=== PATIENT | female | born 2000 | race African-American/Black ===

== ENCOUNTER 2018-07-08 15:01 | Emergency (ER) | payer MEDICAID, SELFPAY ==
[2018-07-08] MEDS ORDERED: Azithromycin 250 MG TAB ONE (16:08)
[2018-07-08] MEDS ORDERED: cefTRIAXone\\ROCEPHIN 250 MG VIAL ONE (16:08)
[2018-07-08] MEDS ORDERED: Lidocaine 1% PF 5 ML VIAL ONE (16:10)
[2018-07-08] MEDS ORDERED: Proparacaine 0.5% Opth 15 ML BOT ONE (17:20)
== END 2018-07-08 16:35 | disposition home or self-care (01) ==
LOC: ERS 15:01
DX: A54.9 Gonococcal infection, unspecified (principal); A56.8 Sexually transmitted chlamydial infection of other sites; F32.9 Major depressive disorder, single episode, unspecified; F41.9 Anxiety disorder, unspecified
CPT/HCPCS: 96372; J0696; J2001

== ENCOUNTER 2019-01-31 21:07 | Day surgery (SDC) | payer OTHER ==
[2019-01-31 21:32] VITALS: BP 100/57; TEMP 98.6; BMI 23.3
[2019-01-31] MEDS: Lactated Ringer's 1,000 ML IV SCH ×2 (22:28→23:35)
[2019-01-31] MEDS ORDERED: Sodium Chloride 0.9% 2,000 ML IV SCH (23:45)
--- NOTE | 2019-01-31 23:48 | PDOC.FPROB ---
FMR OB H&P: HPI - History of Present Illness Chief Complaint: contractions Indentification: G1 History of Present Illness: 18yo G1 at 34w EGA by 23w US presents with complaint of increased pain with contractions, having them now every 20 min. Pt reports pain is high enough that they are difficult to walk through. Pt reports sexual activity 2 days ago and that the next day her contractions became more painful. Denies any other complaints or concerns. Denies Vaginal bleeding/discharg/LOF, reports good mvmt. Primary Care Physician: JEFERSON FMR OB H&P: Current - Care : 1 Gestational age: 32 - OB Labs Blood type: B RH: positive Antibody Screen: negative HIV: negative RPR: negative HepBsAg: negative Rubella: immune GBS: unknown FMR OB H&P: History - Past Medical History PMH: none - OB History OB History: none - Surgical History Sx History: none - Social History Social History: Denies T/A/D - Family History Family History: DM FMR OB H&P: Medications - Current Home Medications: Medication Instructions Recorded Confirmed Type Iron Fum,Ps/Folic Acid/Vitc/B3 1 cap PO DAILY 01/31/19 01/31/19 History [Folivane-F] 21/Iron Fu/Folic Acid 1 tablet PO DAILY 01/31/19 01/31/19 History [ Complete Caplet] Allergies/Adverse Reactions: Allergies Allergy/AdvReac Type Severity Reaction Status Date / Time No Known Allergies Allergy Unverified 01/31/19 21:22 FMR OB H&P: ROS - Review of Systems General: denies: fever/chills, fatigue Eyes: denies: eye pain, vision changes ENT: denies: nasal congestion, rhinorrhea Cardiovascular: denies: chest pain, palpitation Respiratory: denies: cough, congestion Gastrointestinal: denies: indigestion, diarrhea, constipation Genitourinary (Female): reports: contractions. denies: incontinence, dysuria, vaginal discharge, vaginal pain, vaginal bleeding, vaginal mass/sore Musculoskeletal: denies: pain, stiffness Neurologic: denies: numbness, syncope, seizures Integumentary: denies: rash, lesions Endocrine: denies: cold intolerance, heat intolerance Psychological: denies: depression, anxiety FMR OB H&P: Vital Signs - Maternal Vital signs: Vital Signs - First Documented Temp Pulse Resp BP Pulse Ox 98.6 F 94 18 100/57 L 100 01/31/19 21:21 01/31/19 21:21 01/31/19 21:21 01/31/19 21:21 01/31/19 21:21 - Heart Tones Baseline: 150 Variability: moderate Acceleration: absent Deceleration: absent Category: category 1 [place] contractions every: 3-6min --> <20min FMR OB H&P: Physical Exam - Physical Exam General: NAD, awake, alert and oriented HEENT: normocephalic and atraumatic, EOMI, grossly normal vision, grossly normal hearing Neck: supple, trachea midline Chest: non-tender to palpation Breast: symmetric Heart: RRR, normal S1/S2 General: CTAB, no respiratory distress Abdomen: soft, gravid Musculoskeletal: normal gait and station, pulses present Neurological: no tremor, no focal deficit Lymphatic: no purpura, no petechia Psychiatric: intact recent and remote memory, good judgement and insight - Pelvic Exam SVE: /50/-2 Presentation: vertex FMR OB H&P: A/P - Problem List (1) Status: Acute Discussion: Intrauterine A- Cramps/contractions initially q3-6min on presentation with SVE at /50/-2, with NS contractions spread to every > 20min and pt reported pain had resolved. Considering recent sexual activity and showing no change with cervical exam several hours later this is unlikely labor. P- Will DC with explicit labor precautions and instructions to f/u this week with PCP, Dr. Dumas. Addendum - Attending - Attending Attestation Date/Time: 02/02/19 3476 I personally evaluated the patient and discussed the management with Dr. Mena I agree with the History, Examination, Assessment and Plan documented above with any addition or exceptions noted below.
== END 2019-02-01 02:15 | disposition home or self-care (01) ==
LOC: L&D/OP 21:07
PROVIDERS: ATTEND Obstetrics & Gynecology
DX: O47.03 False labor before 37 completed weeks of gestation, third trimester (principal); Z3A.34 34 weeks gestation of pregnancy; Z79.899 Other long term (current) drug therapy
CPT/HCPCS: 96360; 96361; 99283

== ENCOUNTER 2019-03-04 09:18 | Day surgery (SDC) | payer OTHER ==
[2019-03-04 10:06] VITALS: BMI 24.7
[2019-03-04] MEDS ORDERED: Iron Sucrose Complex 500 MG in Sodium Chloride 0.9% 250 ML 250 ML IVPB SCH (11:00)
[2019-03-04] MEDS ORDERED: Sodium Chloride 0.9% 1,000 ML IV SCH (11:00)
[2019-03-04] MEDS ORDERED: Acetaminophen 500 MG TAB PO SCH (11:00)
--- NOTE | 2019-03-04 11:04 | PDOC.LDHP ---
Labor and Delivery H&P Chief complaint: other (scheduled iron infusion) Current gestational age (weeks): 38 (38.4) Due date: 03/14/19 Dating criteria: second trimester ultrasound Grav: 1 Para: 0 OB History Details: 1st Current complications: none Current medications: pre-joel vitamins Allergies/Adverse Reactions: Allergies Allergy/AdvReac Type Severity Reaction Status Date / Time No Known Allergies Allergy Verified 03/04/19 09:52 Social history: none - Physical Exam Vital signs reviewed and normal: yes General: other Heart: RRR Lungs: CTAB Abdomen: gravid [place] contractions every: uterine irritability - OB Labs Blood type: B RH: positive Antibody Screen: negative HIV: negative RPR: negative HEPSAg: negative GBS: negative Rubella: immune Additional Labs: gono negative chlamydia positive with NEHA on 02/14 negative Hb 9.2 (02/21/19) - Plan -: 18 yo G1 at 38.4 by 23.4wk sono here for scheduled iron transfusion 1. Anemia of -No improvement with oral iron therapy -Hb 9.2 (02/21/19) -First time transfusion -Will tranfuse and recheck labs, monitor for 30 minutes, d/c if stable 2. sIUP, term -continue routine care with Dr. Dumas, has appt next Thursday Addendum - Attending - Attending Attestation Date/Time: 03/04/19 [id number] I personally evaluated the patient and discussed the management with Dr. Marsh. I agree with the History, Examination, Assessment and Plan documented above with any addition or exceptions noted below.
--- NOTE | 2019-03-04 15:33 | PDOC.EVN ---
Event Note - Event Note Event Note: Residents paged to evaluate patient who is complaining of hands feeling puffy and heavy. She states it started in her legs and now hands. She denies any shortness of breath, itching, abdominal pain. Denies headache, vision changes. VS reviewed and WNL FHT reassuring Gen: awake, flat affect HEENT: NCAT CV: RRR RESP: CTAB ABD: gravid, NT EXT: no pitting edema NEURO: no focal deficits A/P: 18 yo G1 here for iron infusion - Will d/c 2/2 possible intolerance - Do not suspect allergic rxn at this time - Continue to observe for additional hour - Will d/c if vitals remain stable and no new sx occur MD Roxanne, PGY-3
[2019-03-04] MEDS ORDERED: Lactated Ringer's 1,000 ML IV SCH (16:00)
== END 2019-03-04 18:01 | disposition home health service (06) ==
LOC: L&D/OP 09:18
PROVIDERS: ATTEND Emergency Medicine
DX: O99.013 Anemia complicating pregnancy, third trimester (principal); D64.9 Anemia, unspecified; Z3A.38 38 weeks gestation of pregnancy
CPT/HCPCS: 96361; 96365; 96366; 99282; J1756; J7050

== ENCOUNTER 2019-03-09 22:26 | Day surgery (SDC) | payer OTHER ==
[2019-03-09 23:06] VITALS: BMI 24.7
--- NOTE | 2019-03-10 00:16 | PDOC.LDHP ---
Labor and Delivery H&P Chief complaint: other (vaginal spotting) HPI: 18YO @ 39.2 weeks presented to L&D reporting vaginal spotting that began around 20:00 today. The patient reports that she was seen in [facility] and had her cervix checked which was reportedly /-1. She reports that it was light pink spotting only on the toilet paper when she wiped. She therefore took a shower and checked again when she used the bathroom after showering and noticed a little more blood in the tissue that was a little darker so she proceeded to L& D for further evaluation. She endorses occasional lower abdominal pressure and back pain but denies any painful, regular contractions, abnormal vaginal discharge or LOF. She endorses regular movement and denies any dysuria, N/ V or fever/chills. Current gestational age (weeks): 39 (39.2) Due date: 03/14/19 Dating criteria: last menstrual period Grav: 1 Para: 0 OB History Details: h/o chlamydia & gonorrhea earlier in w/ negative OTC on 02/14/19 h/o BV s/p treatment Current complications: other (anemia s/p iron infusion x1) Past Medical History: none Current medications: pre- vitamins Previous surgical history: none Allergies/Adverse Reactions: Allergies Allergy/AdvReac Type Severity Reaction Status Date / Time No Known Allergies Allergy Verified 03/09/19 23:05 Social history: drug use (MJ last used a few weeks ago) - Physical Exam Vital signs reviewed and normal: yes General: NAD, resting Heart: RRR Lungs: nonlabored breathing Abdomen: NTTP Extremeties: no edema FHT: category 1, variability present - Vaginal Exam cm dilated: 1 (/-1 in clinic & here) Effacement: 90% Station: -1 - OB Labs Blood type: B RH: positive Antibody Screen: negative HIV: negative RPR: negative HEPSAg: negative Rubella: immune - Assessment term sIUP w/ vaginal spotting 2/2 cervical stretching from cervical check - Plan -: 18YO @ 39.2 weeks who presented to L&D with a CC of vaginal spotting. Vaginal spotting: - Patient irregularly hitesh and not in any distress even with contractions. FHTs reassuring with baseline in the 150s and accels and variability present. - Cervical check unchanged from clinic today and patient denies any unprotected intercourse since negative NEHA for GC/Chlamydia. No further testing therefore indicated at this time since patient is term. - Patient reassured that spotting was from cervical check earlier today and cleared for discharge home with labor precautions. Patient agreed with plan and endorsed understanding. Instructed to keep scheduled appt with [facility] for next . sIUP @ 39.2 weeks: - Patient instructed to keep f/u appt with [facility] for routine monitoring. Anemia in : - Patient instructed to continue PNVs and f/u with [facility]. Dispo: Discharged home with labor precautions. Addendum - Attending - Attending Attestation Date/Time: 03/10/19 0036 I personally evaluated the patient and discussed the management with Dr. Falcon. G1 at term with spotting since exam in Clinic today. FHTs are reassuring. SVE is unchanged. I agree with the History, Examination, Assessment and Plan documented above.
[2019-03-11] MEDS ORDERED: Acetaminophen 500 MG TAB PO SCH (14:00)
[2019-03-11] MEDS ORDERED: Ondansetron ORAL SOLN. 4 MG/5 ML UDCUP PO PRN (14:04)
[2019-03-11] MEDS ORDERED: Lactated Ringer's 1,000 ML IV SCH (14:15)
== END 2019-03-10 00:50 | disposition home or self-care (01) ==
LOC: L&D/OP 22:26
PROVIDERS: ATTEND Obstetrics & Gynecology
DX: O26.853 Spotting complicating pregnancy, third trimester (principal); O99.019 Anemia complicating pregnancy, unspecified trimester; D64.9 Anemia, unspecified; Z3A.39 39 weeks gestation of pregnancy
CPT/HCPCS: 99283

== ENCOUNTER 2019-03-11 12:10 | Inpatient (IN) | payer OTHER ==
[2019-03-11 12:27] VITALS: BMI 24.7
--- NOTE | 2019-03-11 14:38 | PDOC.FPROB ---
FMR OB H&P: HPI - History of Present Illness Chief Complaint: N/V, right flank pain History of Present Illness: 18 yo G1 at 39.4wks by 23.4 wk US here for back pain on right. Also having N/V starting last night after eating [employer]. She denies dysuria, burning, abnormal smells or colors of urine. Denies fever, HALEY, RUQ pain, vision disturbances, LOF, vaginal bleeding. Vomit is non-bilious, non-bloody. Patient denies tobacco smoking, EtOH use, endorses marijuana smoking most recently about a month ago. No other current or history of recreational drug use. Patient endorses history of schizophrenia, bipolar, depression, anxiety. Diagnosed about 3 years ago, has never taken medication because she was "doing fine without medications." FMR OB H&P: Current - OB Labs Blood type: B RH: positive Antibody Screen: negative HIV: negative RPR: negative HepBsAg: negative Rubella: immune Gonorrhea: negative Chlamydia: positive (with negative NEHA Feb 14 2019.) H&H: 9.6/28.9 Platelets: 249 FMR OB H&P: History - Past Medical History PMH: schizophrenia bipolar depression anxiety - OB History OB History: G1 - [place] History [place] History: chlamydia positive in pegnancy with negative POC on 02/14/19 - Social History Social History: endorses marijuana use, most recently 1 month ago denies tobacco, EtOH, other rec drug use FMR OB H&P: Medications - Current Home Medications: Medication Instructions Recorded Confirmed Type 21/Iron Fu/Folic Acid 1 tablet PO DAILY 01/31/19 03/09/19 History [ Complete Caplet] Acetaminophen [Tylenol] 325 mg PO PRN PRN 03/11/19 03/11/19 History Allergies/Adverse Reactions: Allergies Allergy/AdvReac Type Severity Reaction Status Date / Time No Known Allergies Allergy Verified 03/09/19 23:05 FMR OB H&P: ROS - Review of Systems General: reports: weight/appetite/sleep changes (dec appetite today with n/v). denies: fever/chills Eyes: denies: vision changes, scotomas Cardiovascular: denies: chest pain, palpitation Respiratory: denies: shortness of breath Gastrointestinal: reports: nausea, vomiting. denies: abdominal pain, diarrhea Genitourinary (Female): denies: dysuria, hematuria, vaginal discharge, contractions Neurologic: denies: numbness, syncope FMR OB H&P: Vital Signs - Maternal Vital signs: 105/69 HR: 76 RR: 18 TEMP: 98.5 - Heart Tones Baseline: 120 Variability: moderate Acceleration: absent Deceleration: absent Category: category 1 [place] contractions every: inconsistent FMR OB H&P: Physical Exam - Physical Exam General: awake, alert and oriented Deviation from normal: difficulty with history 2/2 nausea HEENT: EOMI, no scleral icterus, grossly normal hearing Heart: RRR, normal S1/S2, no murmurs/rubs/gallops General: CTAB, no respiratory distress, no wheezing Abdomen: soft Musculoskeletal: pulses present, FROM in all four extremities Skin: good tugor, capillary refill <2 seconds Psychiatric: intact recent and remote memory - Pelvic Exam SVE: /-3 FMR OB H&P: A/P - Problem List (1) Nausea/vomiting in Current Visit: Yes Status: Acute Code(s): O21.9 - VOMITING OF , UNSPECIFIED (2) Flank pain, acute Current Visit: Yes Status: Acute Code(s): R10.9 - UNSPECIFIED ABDOMINAL PAIN (3) Current Visit: No Status: Acute (4) Marijuana use Current Visit: Yes Status: Acute Code(s): F12.90 - CANNABIS USE, UNSPECIFIED , UNCOMPLICATED (5) Chlamydia infection affecting Current Visit: Yes Status: Acute Code(s): O98.819 - OTH MATERNAL INFEC/ PARASTC DISEASES COMP PREG, UNSP TRI; A74.9 - CHLAMYDIAL INFECTION, UNSPECIFIED (6) Anemia affecting Current Visit: Yes Status: Acute Code(s): O99.019 - ANEMIA COMPLICATING , UNSPECIFIED TRIMESTER (7) Schizophrenia Current Visit: Yes Status: Acute Code(s): F20.9 - SCHIZOPHRENIA, UNSPECIFIED (8) Bipolar disorder, unspecified Current Visit: Yes Status: Acute Code(s): F31.9 - BIPOLAR DISORDER, UNSPECIFIED (9) Depression Current Visit: Yes Status: Acute Code(s): F32.9 - MAJOR DEPRESSIVE DISORDER , SINGLE EPISODE, UNSPECIFIED (10) Anxiety Current Visit: Yes Status: Acute Code(s): F41.9 - ANXIETY DISORDER, UNSPECIFIED Disposition: pending lab results and imaging Discussion: Date/Time: 03/11/19 1428 18yo G1 at 39.4wks by 26.4wk US presenting with nausea, vomiting, right flank pain: 1. term IUP -will give fluid bolus and recheck in 2 hours 2. Nausea/vomiting -will check CMP and RUQ US to rule out liver/GB etiology -fluid bolus 3. Right flank pain -check UA to rule out pyelo -afebrile 4. Hx of drug use -marijuana about a month ago -check urine drug screen 5. psych history (schizophrenia, bipolar, depression, anxiety) -patient has never taken medications -discussed having case mgmt come by to talk to her about community resources; she said she is not interested at this time 6. Anemia in -s/p iron infusion 1 week ago 7. Hx of chlamydia in -negative NEHA 02/14/19 This H&P was discussed with Dr. Tellez who agree with the above documentation and plan. Signature: Bean Potter DO, PGY3
--- NOTE | 2019-03-11 14:39 | PDOC.EVN ---
Event Note - Event Note Event Note: Time: 1440 OBGYN Faculty H&P dictated previously This is an H&P addendum: Social HX: HX MJ use last week. Dr oPtter will order UDS Meds: no current psyvh meds. Will see if case management need to be consulted See dictated H&P from al and Dr Potter
[2019-03-11] MEDS ORDERED: Lactated Ringer's 1,000 ML IV SCH ×2 (14:45→18:30)
[2019-03-11] MEDS ORDERED: Ondansetron ORAL SOLN. 4 MG/5 ML UDCUP PO PRN (14:45)
[2019-03-11] MEDS ORDERED: Acetaminophen 500 MG TAB PO SCH (14:45)
--- NOTE | 2019-03-11 14:54 | HP ---
TIME OF EVALUATION: Roughly 1400 hours until 1415. LOCATION: Labor and Delivery Triage. This is a patient of the clinic first evaluated by our resident team/on-call physician, Dr. Potter. CHIEF COMPLAINT: 1. Nausea and vomiting. 2. Right upper back pain. 3. Irregular contractions. HISTORY OF PRESENT ILLNESS: This is a 18-year-old, G1, P0, at 39 weeks and 4 days, here with a complaint of nausea and vomiting, time is 2200 hours, last night. She also has some nondescript lower abdominal pain and right flank pain. She denies fevers or burning on urination. She has no diarrhea. She does have a history of anemia this and had an IV iron transfusion recently. She was checked 2 days ago and her cervical exam was 1 cm dilation, 80% effacement. She denies any other issues and she is the patient of the clinic. REVIEW OF SYSTEMS: Complete review of systems was assessed and is otherwise negative unless specified in the HPI. PAST MEDICAL HISTORY: Noncontributory. PAST GYNECOLOGICAL HISTORY: Significant for being positive for both gonorrhea and chlamydia with negative test of cure noted on the record dated February 13. PAST PSYCHOLOGICAL HISTORY: The patient has a history of schizophrenia. ALLERGIES: NONE. SOCIAL HISTORY: Pending per resident evaluation. MEDICATIONS: Pending after resident evaluation. PHYSICAL EXAMINATION: VITAL SIGNS: She is afebrile. Temperature is within normal limits, blood pressure is 105/69, heart rate is 76, respiration rate is 18. GENERAL: Clinically, she is in no acute distress, although she arrived by EMS. ABDOMEN: Gravid. CERVICAL: Reveals a cervix of 2 cm dilation, 75% effacement, -3 station. monitoring; heart tones are in the 150s with category one tracing. Tocodynamometer shows irregular contractions, interventions ordered. We have ordered IV fluid hydration, complete metabolic profile, cath UA with micro, with reflex urine culture, and labor observation. ASSESSMENT: This is a primigravida at full term, patient of Clinic, with past history of schizophrenia, with treated gonorrhea and chlamydia cervical infection, now presenting with constellation of symptoms including nausea and vomiting/flank pain/possible contractions. PLAN: 1. Nausea and vomiting assessment. We will order a complete metabolic profile as well as a right upper quadrant ultrasound. 2. We will treat conservatively with Zofran as an antiemetic and give IV fluids. 3. Flank pain. No evidence of CVAT per nursing and resident evaluation. We will do a cath UA and order micro and urine culture as reflex. Clinical suspicion for pyelonephritis is low at this time. 4. Contractions. Latent phase of labor reviewed. Strip reactive. No evidence of pathological D cells. We will recheck the cervix in 2 hours to see if there is cervical change. Job ID: [id number]
--- NOTE | 2019-03-11 15:29 | ULT ---
US Gallbladder RUQ History: [Ultrasound gallbladder right upper quadrant] Comparison: None. Findings: Right flank pain. Nausea and vomiting in . Vicious portion of the pancreas, aorta, and IVC are unremarkable. Liver measures 13.4 cm in length. P ortal vein is patent with antegrade flow. Common bile duct measures less than 2 mm, normal. Gallbladder is normal. Severe right hydronephrosis. Right ureteral jet not well visualized. Urinary documented at 128 bpm. Impression: Moderate to severe right hydronephrosis. No right ureteral jet visualized. Obstructing UV J calculus is a possibility.
[2019-03-11] MEDS ORDERED: Ondansetron ODT 4 MG TAB PO PRN (15:30)
[2019-03-11 16:02] LABS: ALT (SGPT) 12 U/L (8-55); AST (SGOT) 19 U/L (5-34); Albumin 3.7 g/dL (3.5-5.0); Alkaline Phosphatase 210 U/L (40-150); Anion Gap 16 mmol/L (10-20); BUN (Urea Nitrogen) 4 mg/dL (7.0-18.7); Bilirubin, Total 0.7 mg/dL (0.2-1.2); Calc. Creatinine Clearance 108 mL/min (70-130); Calcium 8.9 mg/dL (7.8-10.44); Carbon Dioxide 19 mmol/L (22-29); Chloride 108 mmol/L (98-107); Estimated GFR-MDRD Greater than 90; Globulin 3.2 g/dL (2.4-3.5); Glucose 70 mg/dL (70-105); Potassium 3.7 mmol/L (3.5-5.1); Protein, Total 6.9 g/dL (6.0-8.3); Sodium 139 mmol/L (136-145)
[2019-03-11] MEDS ORDERED: Ondansetron PF 4 MG/2 ML Vial IVP PRN ×2 (16:10→20:32)
--- NOTE | 2019-03-11 17:53 | PDOC.EVN ---
Event Note - Event Note Event Note: Sono with right hydro...ureteral jet not well seen on that side. UA still pending to look for hematuria.
[2019-03-11 18:13] LABS: Bilirubin Negative (Negative); Blood, Urine Large (Negative); Clarity CLEAR (Clear); Glucose, Urine (Dipstick) Negative (Negative); Leukocyte Negative (Negative); Nitrite Negative (Negative); Protein, Urine (Dipstick) Negative (Neg-Trace); Specific Gravity, Urine 1.012 (1.002-1.036); Urobilinogen 0.2 mg/dL (0.2-1.0)
[2019-03-11 18:15] LABS: Bacteria/HPF None Seen HPF (None Seen); Hyaline Casts/LPF 0-3 HYALINE CAST LPF (0-3 Hyaline); RBC/HPF GREATER THAN 50-TNTC HPF (0-3); Squamous Epithelial 0-3 HPF (0-3); WBC/HPF 0-3 HPF (0-3)
[2019-03-11 18:18] LABS: Urine Culture Reflex No No
[2019-03-11 18:27] LABS: Amphetamine Not Detected (NotDetected); Barbiturates Screen Not Detected (NotDetected); Benzodiazepine Screen Not Detected (NotDetected); Cocaine Metabolite Screen Not Detected (NotDetected); Medtox Control Line Valid? VALID (VALID); Medtox Reader # READER 4; Methadone Not Detected (NotDetected); Methamphetamine Not Detected (NotDetected); Opiate Screen Not Detected (NotDetected); Oxycodone Screen Not Detected (NotDetected); Phencyclidine (PCP) Not Detected (NotDetected); THC/Cannabinoid Screen Not Detected (NotDetected); Tricyclic Screen Not Detected (NotDetected)
[2019-03-11] MEDS ORDERED: Ondansetron PF 4 MG/2 ML Vial IVP SCH (18:30)
[2019-03-11] MEDS ORDERED: Tamsulosin HCl 0.4 MG CAP PO SCH (18:45)
--- NOTE | 2019-03-11 18:53 | PDOC.EVN ---
Event Note - Event Note Event Note: 18:40 on 03/11/2019 Called and spoke to Dr. Muñiz, Urologist transmission supervisor regarding likely UVJ stone given moderate to severe hydronephrosis and difficulty visualizing ureteral jet on right. Patient s/p 1L LR. UA showed large blood, further suggesting stone. Repeat renal ultrasound ordered to reassess ureteral jet post hydration. An additional liter of LR has been hung. Inquired about flomax, and recommendation was to start flomax. Recommendation per transmission supervisor Urologist is to find a regimen for adequate pain control. If pain does not improve despite regimen, then Urologist will need to be called regarding stent placement. No indication to deliver patient prior to stent placement if that becomes a possibility, unless she goes into labor spontaneously. As of now, patient is not in labor. She has uterine irritability, but no regular contractions. Cervical exam on admission /-3. Will recheck prior to d/c if able to get pain under control with home pain regimen. OBGYN Faculty: Above noted and discussed with Dr Estevez. I have seen and evaluated the patient and she seems clinically well. Twila Estevez, DO PGY-2
[2019-03-11] MEDS: Lactated Ringer's 1,000 ML IV SCH (19:00)
--- NOTE | 2019-03-11 19:00 | PDOC.EVN ---
Event Note - Event Note Event Note: 03/11/2019 at 19:00 UDS negative
[2019-03-11] MEDS ORDERED: Ibuprofen 800 MG TAB PO PRN (20:32)
[2019-03-11] MEDS ORDERED: NS / Oxytocin 40 units/1000ml 1,000 ML IV PRN (20:32)
[2019-03-11] MEDS ORDERED: Acetaminophen 500 MG TAB PO PRN (20:32)
[2019-03-11] MEDS ORDERED: Promethazine HCl 25 MG/ML VIAL IM PRN (20:32)
[2019-03-11] MEDS ORDERED: Lidocaine 1% (PF) 30 ML VIAL SC PRN (20:32)
--- NOTE | 2019-03-11 20:40 | ULT ---
ULTRASOUND RENAL: DATE: 03/11/2019 HISTORY: 18-year-old female in late third trimester presents with severe right-sided abdominal pain w ith nausea and vomiting. FINDINGS: There is severe dilation of the right renal collecting system. The right kidney is measured as 12 x 7 x 8 cm, enlarged. The left kidney was not imaged because the patient was in too much pain to assume right posterior dec ubitus position for scan. Urinary bladder is distended. There is absence of right ureteral jet. There is a small, approximately 5 x 7 mm hyperechoic focus within the right UVJ, probably with shadowing. IMPRESSION: Severe right hydronephrosis. This is apparently due to an obstructing calculus at the right ureterove sical junction.
[2019-03-11] MEDS ORDERED: Misoprostol 100 MCG TAB VAG SCH (20:45)
--- NOTE | 2019-03-11 20:48 | PDOC.EVN ---
Event Note - Event Note Event Note: 03/11/2019 at 20:30 Dr. Peterson and myself present during repeat ultrasound. Right sided, severe hydronephrosis evident on sono. Right sided UVJ calculus evident on sono measuring appx 5x7 mm. Patient unable to roll on right side to evaluate left kidney due to pain. Patient will be given stadol for pain control as needed. Given term gestation at 39.4 wks, severe hydro, and large ureteral stone, decision was made to proceed with induction. Patient will continue to be hydrated and will attempt to control pain with stadol. If stone does not pass and patient continues to have pain after delivery, will consult Urology again for stent placement. Risks/benefits of induction discussed with patient who has agreed to proceed with induction. Twila Estevez, DO PGY-2
[2019-03-11] MEDS: Butorphanol Tartrate 1 MG/ML VIAL SLOW IVP PRN (21:20)
[2019-03-11 21:43] LABS: Hemoglobin 9.6 g/dL (12.0-16.0); Mean Corpuscular HGB CONC 33.1 g/dL (32.0-36.0); Mean Corpuscular Hemoglobin 29.9 pg (25.0-35.0); Mean Corpuscular Volume 90.4 fL (78.0-98.0); Mean Platelet Volume 7.5 fL (7.4-10.4); Platelet Count 192 thou/uL (130-400); RBC Distribution Width 15.2 % (11.5-14.5); Red Blood Cell (RBC) Count 3.19 mill/uL (4.00-5.20); White Blood Cell (WBC) Count 11.8 thou/uL (4.8-10.8)
[2019-03-11 22:22] LABS: Syphilis Antibody Nonreactive (Nonreactive); Syphilis Antibody Index 0.03 S/CO (<1.00 Non-Reactive)
[2019-03-11] MEDS: Misoprostol 100 MCG TAB VAG SCH (22:50)
[2019-03-12] MEDS: Butorphanol Tartrate 1 MG/ML VIAL SLOW IVP PRN ×3 (00:25→05:00)
[2019-03-12 00:56] LABS: HBSAg Index 0.31 S/CO (0-0.99); Hep B Surf Ag Non-Reactive S/CO (NonReactive)
--- NOTE | 2019-03-12 01:05 | PDOC.LDPN ---
Labor & Delivery Progress Note - Subjective Subjective: comfortable - Objective Vital signs reviewed and normal: yes General: NAD Uterine fundus: non tender SVE: at 22:50 by nurse Dilation: 2 Effacement: 75% Station: -3 FHT: category 1, variability present [place] contractions every: Irregular - Assessment (1) Term Code(s): Z34.90 - ENCNTR FOR SUPRVSN OF NORMAL , UNSP, UNSP TRIMESTER Current Visit: Yes Status: Acute (2) Renal calculi Current Visit: Yes Status: Acute (3) Anemia affecting Code(s): O99.019 - ANEMIA COMPLICATING , UNSPECIFIED TRIMESTER Current Visit: Yes Status: Acute (4) Anxiety Code(s): F41.9 - ANXIETY DISORDER, UNSPECIFIED Current Visit: Yes Status: Acute (5) Bipolar disorder, unspecified Code(s): F31.9 - BIPOLAR DISORDER, UNSPECIFIED Current Visit: Yes Status: Acute (6) Chlamydia infection affecting Code(s): O98.819 - OTH MATERNAL INFEC/PARASTC DISEASES COMP PREG, UNSP TRI; A74.9 - CHLAMYDIAL INFECTION, UNSPECIFIED Current Visit: Yes Status: Acute (7) Depression Code(s): F32.9 - MAJOR DEPRESSIVE DISORDER, SINGLE EPISODE, UNSPECIFIED Current Visit: Yes Status: Acute (8) Marijuana use Code(s): F12.90 - CANNABIS USE, UNSPECIFIED, UNCOMPLICATED Current Visit: Yes Status: Acute (9) Schizophrenia Code(s): F20.9 - SCHIZOPHRENIA, UNSPECIFIED Current Visit: Yes Status: Acute Plan: continue plan of care, labor augmentation -: Cervical exam by nurse at 22:50 unchanged from prior exam . Cytotec placed. Recheck in [address] additional cytotec if cervix still not favorable at that time.
--- NOTE | 2019-03-12 03:34 | PDOC.LDPN ---
Labor & Delivery Progress Note - Subjective Subjective: comfortable - Objective Vital signs reviewed and normal: yes General: NAD Uterine fundus: non tender SVE: By nurse at 2:00 Dilation: 2 Effacement: 75% Station: -3 FHT: category 1, variability present [place] contractions every: q1-2 min - Assessment (1) Term Code(s): Z34.90 - ENCNTR FOR SUPRVSN OF NORMAL , UNSP, UNSP TRIMESTER Current Visit: Yes Status: Acute (2) Renal calculi Current Visit: Yes Status: Acute (3) Anemia affecting Code(s): O99.019 - ANEMIA COMPLICATING , UNSPECIFIED TRIMESTER Current Visit: Yes Status: Acute (4) Anxiety Code(s): F41.9 - ANXIETY DISORDER, UNSPECIFIED Current Visit: Yes Status: Acute (5) Bipolar disorder, unspecified Code(s): F31.9 - BIPOLAR DISORDER, UNSPECIFIED Current Visit: Yes Status: Acute (6) Chlamydia infection affecting Code(s): O98.819 - OTH MATERNAL INFEC/PARASTC DISEASES COMP PREG, UNSP TRI; A74.9 - CHLAMYDIAL INFECTION, UNSPECIFIED Current Visit: Yes Status: Acute (7) Depression Code(s): F32.9 - MAJOR DEPRESSIVE DISORDER, SINGLE EPISODE, UNSPECIFIED Current Visit: Yes Status: Acute (8) Marijuana use Code(s): F12.90 - CANNABIS USE, UNSPECIFIED, UNCOMPLICATED Current Visit: Yes Status: Acute (9) Schizophrenia Code(s): F20.9 - SCHIZOPHRENIA, UNSPECIFIED Current Visit: Yes Status: Acute Plan: continue plan of care, labor augmentation -: Continue current plan of action. Cytotec as tolerated. Last cervical check unchanged. Cytotec placed at 2:00 AM.
[2019-03-12] MEDS: Lactated Ringer's 1,000 ML IV SCH ×3 (04:00→22:49)
[2019-03-12] MEDS ORDERED: Terbutaline Sulfate 1 MG/ML VIAL ONE ×2 (05:55→16:00)
[2019-03-12] MEDS ORDERED: Terbutaline Sulfate 1 MG/ML VIAL SC SCH ×2 (06:30→13:00)
--- NOTE | 2019-03-12 06:40 | PDOC.EVN ---
Event Note - Event Note Event Note: 03/12/2019 at 6:15 AM Received page from L&D at appx 5:58 AM. Asked to come up to L&D immediately regarding heart tones in the 60's. On arrival, FHT's in the 60's and patient on hands and knees. Difficulty picking up heart tones. Patient advised to get on elbows and let us put in scalp and IUPC but initially refused. Stated importance and possible need for C/S if we could not adequately monitor FHT's. Baby stayed down for several minutes. Anesthesia was notified and efforts were made to prepare OR. Dr. Peterson arrived and patient finally agreed to scalp and IUPC. scalp placed and FHT's recovered. FHT's stable in the 120's. IUPC also placed. Cervical exam 5/70/-1. Per nurse, just prior to bradycardia, patient SROM'd with light mec. Just prior to SROM, patient 's strip category I. FHT's recovered and patient and baby currently stable. We will continue to monitor. 0.25 mg terbutaline given. Patient was hitesh q1min prior to terbutaline. Now hitesh q7min. Twila Estevez, DO PGY-2
[2019-03-12] MEDS ORDERED: Fentanyl 4 mcg/Bup 0.1% Cadd 100 ML ONE (07:20)
[2019-03-12] MEDS ORDERED: Tamsulosin HCl 0.4 MG CAP PO SCH (09:00)
[2019-03-12] MEDS ORDERED: Promethazine HCl 25 MG/ML VIAL IM PRN ×2 (10:11→12:07)
[2019-03-12] MEDS ORDERED: Acetaminophen 325 MG TAB PO PRN (10:11)
[2019-03-12] MEDS ORDERED: ePHEDrine/0.9% NaCl/PF SYRINGE 50 mg/10 ml SLOW IVP PRN (10:11)
[2019-03-12] MEDS ORDERED: Naloxone HCl 0.4 mg/ml Vial IVP PRN ×4 (10:11→12:07)
[2019-03-12] MEDS ORDERED: diphenhydrAMINE 50 MG/ML VIAL IVP PRN ×2 (10:11→12:07)
[2019-03-12] MEDS ORDERED: Ondansetron PF 4 MG/2 ML Vial IVP PRN ×2 (10:11→12:07)
[2019-03-12] MEDS ORDERED: Lactated Ringer's 500 ML IV PRN (10:11)
[2019-03-12] MEDS ORDERED: Fentanyl 4 mcg/Bupivacaine 0.1% Cassette 100 ML EPIDURAL SCH (10:15)
[2019-03-12] MEDS: Misoprostol 100 MCG TAB VAG SCH ×3 (10:20→16:00)
[2019-03-12] MEDS ORDERED: Communication Order-Pharmacy FS SCH ×2 (10:30→12:15)
[2019-03-12] MEDS ORDERED: Bicitra 30 ML UDCUP ONE (11:01)
[2019-03-12] MEDS ORDERED: Azithromycin 500 MG VIAL ONE (11:02)
[2019-03-12] MEDS ORDERED: HYDROmorphone 2 MG/ML VIAL SLOW IVP PRN (12:07)
[2019-03-12] MEDS ORDERED: Meperidine HCl/PF 25 MG/ML VIAL SLOW IVP PRN (12:07)
[2019-03-12] MEDS ORDERED: Naloxone HCl 0.4 mg/ml Vial IV PRN (12:07)
[2019-03-12] MEDS ORDERED: Promethazine HCl 25 MG SUPP PR PRN (12:07)
[2019-03-12] MEDS ORDERED: L&D-Morphine 4 MG/ML VIAL SLOW IVP PRN (12:07)
[2019-03-12] MEDS ORDERED: Ondansetron HCl/PF 4 MG/2 ML Vial IVP PRN (12:07)
[2019-03-12] MEDS ORDERED: Ketorolac Tromethamine 30 MG/ML VIAL IVP PRN (12:07)
[2019-03-12] MEDS ORDERED: Ketorolac Tromethamine 30 MG/ML VIAL IVP SCH (12:15)
[2019-03-12] MEDS ORDERED: Azithromycin 250 MG TAB PO SCH (13:00)
[2019-03-12] MEDS ORDERED: Bicitra 30 ML UDCUP PO SCH (13:00)
[2019-03-12] MEDS ORDERED: CEFAZOLIN 2 GM in Premix Bag 1 BAG IVPB SCH (13:00)
[2019-03-12 14:09] LABS: Actual Bicarbonate (HCO3a) 24.5 mEq/L (22-28); Base Excess (BEa) -4.3 mEq/L (-2.0 to +3.0)
[2019-03-12 14:10] LABS: Actual Bicarbonate (HCO3v) 22 mEq/L (22-28); Base Excess -5.4 mEq/L (-2.0 to +3.0); pH (Cord, venous) 7.27 (7.32-7.43)
[2019-03-12] MEDS ORDERED: Simethicone Chewable 80 MG TAB PO PRN (14:41)
[2019-03-12] MEDS ORDERED: Lanolin Ointment 7 GM TUBE TOP PRN (14:41)
[2019-03-12] MEDS ORDERED: diphenhydrAMINE 25 MG CAP PO PRN (14:41)
[2019-03-12] MEDS ORDERED: Adacel (T-DAP) 0.5 ML SYRINGE IM ONE (14:41)
[2019-03-12] MEDS ORDERED: NS / Oxytocin 40 units/1000ml 1,000 ML IV SCH (14:41)
[2019-03-12] MEDS ORDERED: Bupivacaine/Epinephrine 0.25% 30 ML VIAL ONE (16:00)
[2019-03-12] MEDS: Ibuprofen 800 MG TAB PO SCH (16:09)
[2019-03-12 17:10] LABS: Hemoglobin 8.8 g/dL (12.0-16.0); Mean Corpuscular HGB CONC 33.3 g/dL (32.0-36.0); Mean Corpuscular Hemoglobin 30.7 pg (25.0-35.0); Mean Corpuscular Volume 92.3 fL (78.0-98.0); Mean Platelet Volume 7.5 fL (7.4-10.4); Platelet Count 196 thou/uL (130-400); RBC Distribution Width 15.4 % (11.5-14.5); Red Blood Cell (RBC) Count 2.85 mill/uL (4.00-5.20); White Blood Cell (WBC) Count 13.1 thou/uL (4.8-10.8)
[2019-03-12] MEDS: Ketorolac Tromethamine 30 MG/ML VIAL IVP PRN (18:44)
[2019-03-13] MEDS ORDERED: HYDROcodone/Acetaminophen 5/325 mg Tablet PO PRN (00:15)
[2019-03-13] MEDS: Ketorolac Tromethamine 30 MG/ML VIAL IVP PRN ×2 (00:32→08:25)
[2019-03-13 06:48] LABS: Hemoglobin 8.4 g/dL (12.0-16.0); Mean Corpuscular HGB CONC 32.3 g/dL (32.0-36.0); Mean Corpuscular Hemoglobin 30.2 pg (25.0-35.0); Mean Corpuscular Volume 93.5 fL (78.0-98.0); Mean Platelet Volume 7.6 fL (7.4-10.4); Platelet Count 187 thou/uL (130-400); Red Blood Cell (RBC) Count 2.78 mill/uL (4.00-5.20); White Blood Cell (WBC) Count 13.2 thou/uL (4.8-10.8)
[2019-03-13] MEDS: Docusate Calcium (SURFAK) 240 MG CAP PO SCH ×3 (07:17→22:15)
[2019-03-13] MEDS: Ferrous Sulfate 325 MG TAB PO SCH ×3 (07:17→22:15)
--- NOTE | 2019-03-13 07:58 | PRG ---
DATE OF SERVICE: 03/13/2019 SUBJECTIVE: The patient is a 18-year-old, postop day 1, status post a primary for non-reassuring heart tones. This morning, she reports she is having good pain control, tolerating p.o., voiding on her own, having decreased lochia. OBJECTIVE: VITAL SIGNS: Shows blood pressure of 98/53, temperature 98.9, pulse of 84, and respiratory rate of 18. GENERAL: She appears to be in no acute distress. She is alert, oriented, cooperative, and pleasant to interact with. HEAD: Normocephalic and atraumatic. Fundus is firm at the umbilicus. Incision is clean, dry, and intact with a bandage. EXTREMITIES: Nontender and nonedematous. LABORATORY DATA: Her post delivery hemoglobin is 8.4, hematocrit 26.0, down from 9.6 and 28.9, and platelets 187,000. ASSESSMENT AND PLAN: The patient is day 1, status post a primary for non-reassuring heart tones. We will continue in-house postoperative care and advance her diet to regular. Job ID: [id number]
[2019-03-13] MEDS ORDERED: Sodium Chloride 0.9% 10 ML ONE (08:18)
[2019-03-13] MEDS: Prenatal Vitamin 1 TAB PO SCH (08:23)
[2019-03-13] MEDS: Ibuprofen 800 MG TAB PO SCH ×3 (08:39→22:16)
[2019-03-13] MEDS ORDERED: ePHEDrine/0.9% NaCl/PF SYRINGE 50 mg/10 ml ONE (12:32)
[2019-03-13] MEDS ORDERED: PHENYLEPHRINE-NS 100 MCG/ML 10 ML SYRINGE ONE (12:32)
[2019-03-13] MEDS ORDERED: PROPOFOL 200 MG/20 ML VIAL ONE (12:32)
[2019-03-13] MEDS ORDERED: Succinylcholine Chloride 20 MG/ML 10 ml SYRINGE FS ONE (12:32)
[2019-03-13] MEDS ORDERED: EPINEPHrine 1 MG/ML AMP ONE (12:32)
[2019-03-13] MEDS ORDERED: Oxytocin 10 UNITS/ML VIAL ONE (12:32)
[2019-03-13] MEDS: HYDROcodone/Acetaminophen 5/325 mg Tablet PO PRN ×2 (17:55→22:14)
[2019-03-14] MEDS: Ibuprofen 800 MG TAB PO SCH ×2 (05:33→16:10)
--- NOTE | 2019-03-14 07:13 | PDOC.PP ---
Post Progress Note Post Day #: 2 Subjective: Doing well PO intake tolerated: yes Flatus: yes Ambulation: yes Vital Signs (12 hours) Temp Pulse Resp BP Pulse Ox 03/13/19 20:00 98.2 F 93 17 101/51 L 99 Weight Weight 135 lb Past vitals reviewed for last 24 hrs: afebrile - Physical Examination General: NAD Cardiovascular: no m/r/g Respiratory: clear to auscultation bilaterally Abdominal: + bowel sounds, lochia Extremities: negative homans (B) Skin: CS incision dry & intact Neurological: no gross focal deficits Psychiatric: A&Ox3, normal affect Result Diagrams: 03/13/19 06:21 03/11/19 15:27 Additional Labs: Post Labs Blood Type B POSITIVE 03/11/19 22:28 Hep Bs Antigen Non-Reactive S/CO (NonReactive) 03/11/19 21:32 (1) delivery delivered Code(s): O82 - ENCOUNTER FOR DELIVERY WITHOUT INDICATION Status: Acute - Assessment/Plan A/P: 1. S/P CS...POD 2...plan on discharge on POD3, doing well 2. HX suspected renal calculi with hydro...which was reason for initial induction...stable, no acute isues now Prob [facility] POD3 tomorrow
[2019-03-14] MEDS: HYDROcodone/Acetaminophen 5/325 mg Tablet PO PRN ×3 (07:25→16:10)
[2019-03-14] MEDS: Ferrous Sulfate 325 MG TAB PO SCH (07:26)
[2019-03-14] MEDS: Docusate Calcium (SURFAK) 240 MG CAP PO SCH (07:27)
[2019-03-14] MEDS: Prenatal Vitamin 1 TAB PO SCH (07:27)
[2019-03-14 08:06] VITALS: BP 103/67; TEMP 97.7
[2019-03-14] MEDS ORDERED: MORPHINE 5 MG/10 ML PF VIAL ONE (10:41)
--- NOTE | 2019-03-15 09:51 | OP ---
DATE OF PROCEDURE: 03/12/2019 PROCEDURE PERFORMED: section. RESIDENT SURGEON: Twila Estevez DO PREOPERATIVE DIAGNOSES: 1. Term intrauterine . 2. Induction of labor secondary to enlarged right ureterovesical junction calculi. 3. A 5 x 7 mm right ureterovesical junction calculus, symptomatic. 4. . 5. Chlamydia in with negative test of care on 02/14/2019. 6. Marijuana use in . 7. Severe persistent bradycardia. POSTOPERATIVE DIAGNOSES: 1. Term intrauterine , delivered. 2. Induction of labor secondary to enlarged right ureterovesical junction calculi. 3. Primary low transverse section for severe persistent bradycardia. INDICATIONS: This is a 18-year-old, G1, P0 at 39 and 4 weeks by a 23 and 5-week ultrasound, who presented to Labor and Delivery with right flank/back pain and the patient was fluid hydrated and renal ultrasound revealed approximately 5 x 7 mm UVJ calculus. The patient was very symptomatic and pain not well controlled with p.o. medications. After discussion with the patient, decision was made for induction, given that she was term and it was felt that delivering the baby was in the best interest, so the kidney stone could be dealt with after delivery if necessary. The patient agreed to proceed with induction of labor. The Cytotec induction was started. DESCRIPTION OF PROCEDURE: The patient was noted to have bradycardia down into the 60s. Attempts were made at resuscitation; however, bradycardia persisted and the patient was taken back for a stat delivery. Risks and benefits of and the potential for were discussed with the patient prior to the induction of labor. The procedure was emergent and the patient voiced her understanding in that regard. The patient was taken back to the operating room, where she was placed in a supine position. The patient already had epidural; however, general anesthesia for the procedure. The patient was prepped and draped in the usual sterile fashion and a Pfannenstiel incision was made using a 10 blade. The incision was carried down to the level of fascia, which was bluntly dissected free. The peritoneum was entered midline and the bladder blade was placed. A 10 blade was used to make an incision difficulties. Cord was clamped and cut and cord blood was collected as well. handed to the awaiting advertising designer and required oxygen, CPAP for duration of 1 minute. Apgars of infant were 5 and 9 at 1 and 5 minutes respectively. The was delivered approximately at 1110 hours on 03/12/2019. After delivering infant, the placenta was delivered spontaneously and was noted to be intact with 3-vessel cord noted in a running locking fashion with O Vicryl . The hysterotomy was examined and noted to be hemostatic. The posterior exam of the uterus did not reveal any abnormalities and hysterotomy was again noted to be hemostatic. The peritoneum was closed in the running nonlocking fashion using 3-0 chromic on SH. The recti muscles were approximated using 3-[address] The fascia was then closed using 0 Vicryl in a running nonlocking fashion. The abdomen was then irrigated and suctioned free of clots. The skin was then approximated using 4-0 monofilament. A pressure dressing was applied and the patient then went to the recovery room for postop management. The patient is to go to for routine recovery/care. Of note, the also went to nursery for routine recovery/care. DRAINS: Bee[place] to gravity draining clear urine. COMPLICATIONS: No complications during the procedure were noted. blood gas analysis as well. Job ID: [id number]
== END 2019-03-14 16:45 | disposition home or self-care (01) | DRG 787 ==
LOC: L&D/OP 12:10 → L&D 20:56 → 3SW 03-12 14:46
PROVIDERS: ADMIT Obstetrics & Gynecology; ATTEND Obstetrics & Gynecology
PROC: 10907ZC Drainage of Amniotic Fluid, Therapeutic from Products of Conception, Via Natural or Artificial Opening (ICD-10-PCS; principal; 2019-03-12)
PROC: 10D00Z1 Extraction of Products of Conception, Low, Open Approach (ICD-10-PCS; 2019-03-12)
PROC: 3E0P7VZ Introduction of Hormone into Female Reproductive, Via Natural or Artificial Opening (ICD-10-PCS; 2019-03-12)
PROC: 3E033VJ Introduction of Other Hormone into Peripheral Vein, Percutaneous Approach (ICD-10-PCS; 2019-03-12)
DX: O76 Abnormality in fetal heart rate and rhythm complicating labor and delivery (principal); O99.324 Drug use complicating childbirth; N13.2 Hydronephrosis with renal and ureteral calculous obstruction; O99.344 Other mental disorders complicating childbirth; O99.89 Other specified diseases and conditions complicating pregnancy, childbirth and the puerperium; O99.02 Anemia complicating childbirth; O77.0 Labor and delivery complicated by meconium in amniotic fluid; F20.9 Schizophrenia, unspecified; F12.90 Cannabis use, unspecified, uncomplicated; F41.9 Anxiety disorder, unspecified; D64.9 Anemia, unspecified; F31.9 Bipolar disorder, unspecified; Z3A.39 39 weeks gestation of pregnancy; Z37.0 Single live birth
CPT/HCPCS: 36415; 51702; 76705; 76770; 80306; 81001; 82805; 85027; 86780; 86850; 86900; 86901; 87340; 88307; 99283; 99285; J0171; J0456; J0595; J0690; J1200; J1885; J2270; J2405; J2590; J2704; J3105; Q0162